=== PATIENT | female | born 1960 | race Caucasian/White ===

== ENCOUNTER 2017-06-11 00:20 | Emergency (ER) | payer SELFPAY ==
[2017-06-11 00:38] VITALS: BMI 20.3
[2017-06-11] MEDS ORDERED: Sodium Chloride 0.9% 1,000 ML IV STA (02:23)
[2017-06-11 03:02] LABS: BASO % 0.2 % (0.0-2.0); EOS % 0.2 % (0.0-4.0); HEMATOCRIT 42.4 % (34.0-47.0); MEAN CORPUSCULAR HEMOGLOBIN 28.1 pg (27.0-31.0); MEAN CORPUSCULAR HGB CONC 33.8 g/dL (33.0-37.0); MEAN PLATELET VOLUME 8.7 fl (7.2-11.7); MONO % 6.7 % (0.0-10.0); NEUT # 12.3 K/uL (1.8-7.0); NEUT % 79.9 % (50.0-75.0); NRBC % 0.1 % (0.0-0.0); RED CELL DISTRIBUTION WIDTH 13.4 % (11.5-14.5); WHITE BLOOD COUNT 15.3 K/uL (4.8-10.8)
--- NOTE | 2017-06-11 03:04 | ED PDOC ---
Hyperglycemia/Hypoglycemia Time Seen by Provider: 06/11/17 02:12 Chief Complaint (Nursing): Medical Clearance Chief Complaint (Provider): Hyperglycemia History Per: Patient History/Exam Limitations: no limitations Current Symptoms Are (Timing): Still Present Causative (Exacerbating) Factor(s): Recent Steroids : The patient does not have any of the infectious symptoms listed except for those marked. Treatment Prior To Provider Evaluation: Accucheck Additional Complaint(s): 56 year old female presents to ED with complaints of hyperglycemia and has a past medical history of DM (Type II), HTN, and dyslipidemia. Patient notes that her blood sugar level has been labile ever since she was prescribed topical cortisone for a facial rash. Cites measurements in the 600-700 range. (+) polydipsia, polyuria, dry mouth, generalized weakness, and severe body aches. Also notes no improvement in the facial rash. PCP: Raymundo Past Medical History Reviewed: Historical Data, Nursing Documentation, Vital Signs Vital Signs: Last Vital Signs Temp 98.1 F 06/11/17 00:38 Pulse 78 06/11/17 00:38 Resp 16 06/11/17 00:38 BP 131/72 06/11/17 00:38 Pulse Ox 97 06/11/17 00:38 - Medical History PMH: Anxiety, Diabetes (type II), HTN, Hyperlipidemia - Surgical History Surgical History: Cholecystectomy, (x2) - Family History Family History: States: No Known Family Hx - Social History Current smoker - smoking cessation education provided: No Ex-Smoker (has not smoked in the last 12 months): No Alcohol: None Drugs: Denies - Immunization History Hx Tetanus Toxoid Vaccination: No Hx Influenza Vaccination: No Hx Pneumococcal Vaccination: No - Home Medications Home Medications: Ambulatory Orders Medication Instructions Recorded Lisinopril/Hydrochlorothiazide 1 tab PO DAILY 11/10/14 [Lisinopril-Hydrochlorothiazide 12.5 mg-10 mg] Meclizine HCl 25 mg PO TID #20 tab 01/18/16 Ondansetron [Zofran Odt] 4 mg PO TID #10 odt 01/18/16 - Allergies Allergies/Adverse Reactions: Allergies Allergy/AdvReac Type Severity Reaction Status Date / Time morphine Allergy RASH Verified 06/11/17 00:37 Review of Systems ROS Statement: Except As Marked, All Systems Reviewed And Found Negative Constitutional: Positive for: Weakness, Other (high blood sugar level, severe body aches) ENT: Positive for: Other ((+) polydipsia) Genitourinary Female: Positive for: Other ((+) polyuria, dry mouth) Skin: Positive for: Rash Physical Exam - Reviewed Nursing Documentation Reviewed: Yes Vital Signs Reviewed: Yes - Physical Exam Appears: Positive for: Non-toxic, No Acute Distress Skin: Positive for: Warm, Dry, Rash (Malar rash on face) Eye Exam: Positive for: Normal appearance ENT: Positive for: Normal ENT Inspection Neck: Positive for: Normal Cardiovascular/Chest: Positive for: Regular Rate, Rhythm. Negative for: Murmur Respiratory: Positive for: Normal Breath Sounds. Negative for: Respiratory Distress Gastrointestinal/Abdominal: Positive for: Soft. Negative for: Tenderness Back: Positive for: Normal Inspection Extremity: Positive for: Normal ROM. Negative for: Deformity Neurologic/Psych: Positive for: Alert, Oriented. Negative for: Motor/Sensory Deficits - Laboratory Results Result Diagrams: 06/11/17 02:20 06/11/17 02:20 - ECG O2 Sat by Pulse Oximetry: 97 (RA) Pulse Ox Interpretation: Normal Medical Decision Making Medical Decision Makin Initial impression: malar rash and hyperglycemia in setting of recent steroid usage and diabetes Initial plan: * ABG * Labs * HgBA1C * UDip * Erythrocyte sedimentation rate * NS IV * Accucheck * Influenza A B 0430 Labs reviewed: no clinically significant abnormalities. Patient is stable for discharge home. Patient states she has two days worth of hydrocortisone left to take. Counseled patient to observe diabetic diet precautions and follow up with PCP Dr. Fonseca. Dx: diabetic hyperglycemia in the setting of steroid use. Scribe Attestation: Documented by Stefany Levin acting as a scribe for Robert Hairston MD. Scribe Attestation: All medical record entries made by the Scribe were at my direction and personally dictated by me. I have reviewed the chart and agree that the record accurately reflects my personal performance of the history, physical exam, medical decision making, and the department course for this patient. I have also personally directed, reviewed, and agree with the discharge instructions and disposition. Disposition - Clinical Impression Clinical Impression: Hyperglycemia due to type 2 diabetes mellitus - Disposition Disposition: Routine/Home Disposition Time: 04:30 Condition: STABLE Instructions: Diabetic Hyperglycemia (ED) Forms: [facility] (Yi) Print Language: IVORIAN
[2017-06-11 03:12] LABS: ALB/GLOB RATIO 1.3 (1.0-2.1); ALKALINE PHOSPHATASE 74 U/L (38-126); ALT/SGPT 56 U/L (9-52); AST/SGOT 37 U/L (14-36); BILIRUBIN,TOTAL 0.9 mg/dl (0.2-1.3); BLOOD UREA NITROGEN 27 mg/dl (7-17); CALCIUM 9.7 mg/dL (8.4-10.2); CARBON DIOXIDE 24 mmol/L (22-30); CHLORIDE 98 mmol/L (98-107); GFR AFRICAN-AMERICAN > 60; GLUCOSE,RANDOM 214 mg/dL (65-105); POTASSIUM 4.1 MMOL/L (3.6-5.0); SODIUM 132 mmol/l (132-148)
[2017-06-11 03:12] LABS: ABG ALLEN TEST YES; ARTERIAL BLOOD GAS HCO3 23.8 mmol/L (21-28); ARTERIAL BLOOD GAS PH 7.47 (7.35-7.45); ARTERIAL BLOOD GAS PO2 100 mm/Hg (80-100)
[2017-06-11 04:23] VITALS: BP 130/74; PULSE 74; RESP 17; TEMP 98
[2017-06-11 05:02] VITALS: O2SAT 97
== END 2017-06-11 04:15 | disposition home or self-care (01) ==
LOC: H.ER 00:20
DX: E11.65 Type 2 diabetes mellitus with hyperglycemia (principal); E78.5 Hyperlipidemia, unspecified; F41.9 Anxiety disorder, unspecified; I10 Essential (primary) hypertension; Z87.891 Personal history of nicotine dependence
CPT/HCPCS: 80053; 82803; 82948; 83036; 85025; 85651; 87804; 96360; 99282; J7040

== ENCOUNTER 2017-06-15 20:25 | Emergency (ER) | payer SELFPAY ==
[2017-06-15 20:25] VITALS: BMI 20.3
[2017-06-15 20:33] VITALS: RESP 18; TEMP 98.1; O2SAT 99
--- NOTE | 2017-06-15 21:03 | ED PDOC ---
HPI: Abdomen Time Seen by Provider: 06/15/17 21:00 Chief Complaint (Nursing): Abdominal Pain Chief Complaint (Provider): abd pain, vomiting History Per: Patient, Family (son at bedside is translating for patient) Additional Complaint(s): 56 year old female presents with abdominal pain and vomiting that started earlier today with no fever or chills. Patient states she has had watery, nonbloody diarrhea for the past 3 days as well. Patient denies any recent travel or known sick contacts. She denies consumption of any food that could have causes stomach upset. Patient also heartburn sensation in chest. She rates abd pain as 8/10 upon arrival. Past Medical History Reviewed: Historical Data, Nursing Documentation, Vital Signs Vital Signs: Last Vital Signs Temp 98.1 F 06/15/17 20:28 Pulse 91 H 06/15/17 20:28 Resp 18 06/15/17 20:28 BP 158/91 H 06/15/17 20:28 Pulse Ox 99 06/15/17 22:45 - Medical History PMH: Anxiety, Asthma, Diabetes (type II), HTN, Hyperlipidemia - Surgical History Surgical History: Cholecystectomy, (x2) - Family History Family History: States: No Known Family Hx - Living Arrangements Living Arrangements: With Family - Social History Alcohol: None Drugs: Denies - Home Medications Home Medications: Ambulatory Orders Medication Instructions Recorded Lisinopril/Hydrochlorothiazide 1 tab PO DAILY 11/10/14 [Lisinopril-Hydrochlorothiazide 12.5 mg-10 mg] Meclizine HCl 25 mg PO TID #20 tab 01/18/16 Ondansetron [Zofran Odt] 4 mg PO TID #10 odt 01/18/16 Dicyclomine [Bentyl] 10 mg PO QID PRN #20 cap 06/15/17 Esomeprazole Magnesium [Nexium] 40 mg PO DAILY #30 tab 06/15/17 Ondansetron [Zofran Odt] 4 mg PO ASDIR PRN #20 odt 06/15/17 - Allergies Allergies/Adverse Reactions: Allergies Allergy/AdvReac Type Severity Reaction Status Date / Time morphine Allergy RASH Verified 06/11/17 00:37 Review of Systems ROS Statement: Except As Marked, All Systems Reviewed And Found Negative Constitutional: Negative for: Fever, Chills Cardiovascular: Positive for: Chest Pain ("heartburn") Respiratory: Negative for: Cough, Shortness of Breath Gastrointestinal: Positive for: Nausea, Vomiting, Abdominal Pain, Diarrhea. Negative for: Constipation Genitourinary Female: Negative for: Dysuria Neurological: Positive for: Headache. Negative for: Dizziness Physical Exam - Reviewed Nursing Documentation Reviewed: Yes Vital Signs Reviewed: Yes - Physical Exam Appears: Positive for: Well, Non-toxic, No Acute Distress Skin: Negative for: Rash Eye Exam: Positive for: Normal appearance Cardiovascular/Chest: Positive for: Regular Rate, Rhythm Respiratory: Positive for: Normal Breath Sounds. Negative for: Wheezing, Respiratory Distress Gastrointestinal/Abdominal: Positive for: Tenderness (diffusely with mild distention). Negative for: Guarding, Rebound Back: Positive for: L CVA Tenderness, R CVA Tenderness Extremity: Positive for: Normal ROM. Negative for: Pedal Edema Neurologic/Psych: Positive for: Alert, Oriented - Laboratory Results Result Diagrams: 06/15/17 21:21 06/15/17 21:21 Urine dip results: Positive for: Ketones. Negative for: Leukocyte Esterase, Blood, Nitrate, Glucose, Bilirubin, Protein - ECG O2 Sat by Pulse Oximetry: 99 Pulse Ox Interpretation: Normal - Other Rad CXR X-Ray: Interpreted by Me, Viewed By Me X-Ray Interpretation: no acute finding CT abd and pelvis with IV contrast X-Ray: Read By Radiologist X-Ray Interpretation: see below Medical Decision Making Medical Decision Makin56 year old with abdominal pain, vomiting and diarrhea Plan: EKG CXR CBC CMP Lipase Troponin IVF IV zofran IV toradol PO pepcid PO maalox CT abd and pelvis K is low at 3.2, kdur 40 given Na is low at 125, second bolus given CT: FINDINGS: Limitations: Motion artifact - mild. Lower thorax: No acute findings. ABDOMEN: Liver: Unremarkable. No mass. Gallbladder and bile ducts: Cholecystectomy. No significant ductal dilation. Pancreas: No ductal dilation. No mass. Spleen: No splenomegaly. Adrenals: No mass. Kidneys and ureters: 1.9 x 1.6 x 1.9 cm slightly heterogeneous enhancing/hyperdense lesion with minimal calcification within RIGHT kidney. No hydronephrosis. Stomach and bowel: Apparent mild mural/fold thickening vs underdistention of several jejunal loops. No associated inflammatory stranding. No obstruction. Appendix: Normal caliber. No inflammation. PELVIS: Bladder: Unremarkable. Reproductive: Unremarkable as visualized. ABDOMEN and PELVIS: Intraperitoneal space: No significant fluid collection. No free air. Bones/joints: Early degenerative changes of spine. Small lucent lesions within L1 vertebral body, nonspecific. No acute fracture. Soft tissues: Unremarkable. Vasculature: Unremarkable. No aneurysm. Lymph nodes : No pathologically enlarged lymph nodes. IMPRESSION: 1. Possible mild enteritis. Clinical correlation is needed. 2. Kidney lesion. Recommend surgical evaluation. Alternatively, if patient has a limited life expectancy or significant co-morbidities, abdominal CT or MRI follow-up in 1 year could be performed. 3. Incidental/non-acute findings are described above. Patien still have "burning pain" despite meds given in ED. She was medicated with 40 mg PO protonix and 10 mg PO bentyl. Patient is tolerating PO, no further emesis noted. Will d/c with rx zofran, bentyl and nexium. Patient and family members at bedside are aware of all CT findings including incidental finding of right kidney lesion. Copy of CT report given to patient, patient was instructed to bring report to PMD for follow up. Disposition - Clinical Impression Clinical Impression: Gastroenteritis - Patient ED Disposition Is Patient to be Admitted: No Counseled Patient/Family Regarding: Studies Performed, Diagnosis, Need For Followup, Rx Given - Disposition Referrals: Catarino Fonseca MD [Family Provider] - Disposition: Routine/Home Disposition Time: 22:55 Condition: STABLE Additional Instructions: Take rx meds as directed. Follow dietary instructions. Drink plenty of fluids. Follow up with primary care doctor. Prescriptions: Dicyclomine [Bentyl] 10 mg PO QID PRN #20 cap PRN Reason: Gi Distress Esomeprazole Magnesium [Nexium] 40 mg PO DAILY #30 tab Ondansetron [Zofran Odt] 4 mg PO ASDIR PRN #20 odt PRN Reason: Nausea/Vomiting Forms: [employer] (Swedish) Results - Lab Results Lab Results: 06/15/17 06/15/17 21:21 21:21 WBC 16.5 H RBC 5.08 Hgb 14.4 Hct 42.0 MCV 82.7 MCH 28.3 MCHC 34.2 RDW 13.0 Plt Count 264 MPV 9.2 Neut % (Auto) 77.0 H Lymph % (Auto) 17.7 L [place] % (Auto) 4.6 Eos % (Auto) 0.3 Baso % (Auto) 0.4 Neut # 12.7 H Lymph # 2.9 [place] # 0.8 Eos # 0.1 Baso # 0.1 Sodium 125 L Potassium 3.2 L Chloride 91 L Carbon Dioxide 23 Anion Gap 14 BUN 22 H Creatinine 0.9 Est GFR ( Amer) > 60 Est GFR (Non-Af Amer) > 60 Random Glucose 216 H Calcium 9.5 Total Bilirubin 0.8 AST 39 H D ALT 60 H Alkaline Phosphatase 79 Troponin I < 0.0120 Total Protein 8.1 Albumin 4.8 Globulin 3.3 Albumin/Globulin Ratio 1.4 Lipase 109
[2017-06-15] MEDS ORDERED: Sodium Chloride 0.9% 1,000 ML IV STA ×2 (21:08→21:47)
[2017-06-15] MEDS ORDERED: Alum-Mag Hydrox-Simethicone Susp (30 mL) PO STA (21:08)
[2017-06-15] MEDS ORDERED: Alum-Mag Hydrox-Simethicone Susp (30 mL) ONE (21:16)
[2017-06-15 21:24] LABS: BASO # 0.1 K/uL (0.0-0.2); BASO % 0.4 % (0.0-2.0); EOS # 0.1 K/uL (0.0-0.7); EOS % 0.3 % (0.0-4.0); HEMOGLOBIN 14.4 g/dL (12.0-16.0); LYMPH # 2.9 K/uL (1.0-4.3); LYMPH % 17.7 % (20.0-40.0); MEAN CELL VOLUME 82.7 fl (81.0-99.0); MEAN CORPUSCULAR HEMOGLOBIN 28.3 pg (27.0-31.0); MEAN CORPUSCULAR HGB CONC 34.2 g/dL (33.0-37.0); MEAN PLATELET VOLUME 9.2 fl (7.2-11.7); MONO # 0.8 K/uL (0.0-0.8); MONO % 4.6 % (0.0-10.0); NEUT # 12.7 K/uL (1.8-7.0); NRBC % 0.1 % (0.0-0.0); RBC 5.08 Mil/uL (3.80-5.20); WHITE BLOOD COUNT 16.5 K/uL (4.8-10.8)
[2017-06-15 21:40] LABS: ALB/GLOB RATIO 1.4 (1.0-2.1); ALBUMIN 4.8 g/dL (3.5-5.0); ALT/SGPT 60 U/L (9-52); AST/SGOT 39 U/L (14-36); BLOOD UREA NITROGEN 22 mg/dl (7-17); CALCIUM 9.5 mg/dL (8.4-10.2); GFR AFRICAN-AMERICAN > 60; GFR NON-AFRICAN AMERICAN > 60; LIPASE 109 U/L (23-300)
[2017-06-15] MEDS ORDERED: Potassium Chloride 20 mEq ER Tab PO STA (21:47)
[2017-06-15] MEDS ORDERED: Iohexol 300 100 ML IJ ONE (21:58)
[2017-06-15] MEDS ORDERED: Sodium Chloride 0.9% 50 ML IV ONE (21:59)
[2017-06-15] MEDS ORDERED: Potassium Chloride 20 mEq ER Tab PO ONE (22:15)
--- NOTE | 2017-06-15 22:46 | CT ---
EXAM: CT Abdomen and Pelvis With Intravenous Contrast CLINICAL HISTORY: 56 years old, female; Pain; Abdominal pain; Generalized; Prior surgery; Surgery date: 6+ months; Surgery type: Cholecystectomy around 6 yrs ago. x 2 2002 2000; Patient HX: Abd pain ; most pain epigastric with burning sensation n v d. HTN dm hyperlipidemia; Additional info: Vomiting, diarrhea, diffuse abd pain TECHNIQUE: Axial computed tomography images of the abdomen and pelvis with intravenous contrast. All CT scans at this facility use one or more dose reduction techniques, viz.: automated exposure control; ma/kV adjustment per patient size (including targeted exams where dose is matched to indication; i.e. head); or iterative reconstruction technique. Coronal and sagittal reformatted images were created and reviewed. CONTRAST: 80 mL of OMNIPAQUE administered intravenously. COMPARISON: US - TRANSVAGINAL 2017-02-26 11:00 FINDINGS: Limitations: Motion artifact - mild. Lower thorax: No acute findings. ABDOMEN: Liver: Unremarkable. No mass. Gallbladder and bile ducts: Cholecystectomy. No significant ductal dilation. Pancreas: No ductal dilation. No mass. Spleen: No splenomegaly. Adrenals: No mass. Kidneys and ureters: 1.9 x 1.6 x 1.9 cm slightly heterogeneous enhancing/hyperdense lesion with minimal calcification within RIGHT kidney. No hydronephrosis. Stomach and bowel: Apparent mild mural/fold thickening vs underdistention of several jejunal loops. No associated inflammatory stranding. No obstruction. Appendix: Normal caliber. No inflammation. PELVIS: Bladder: Unremarkable. Reproductive: Unremarkable as visualized. ABDOMEN and PELVIS: Intraperitoneal space: No significant fluid collection. No free air. Bones/joints: Early degenerative changes of spine. Small lucent lesions within L1 vertebral body, nonspecific. No acute fracture. Soft tissues: Unremarkable. Vasculature: Unremarkable. No aneurysm. Lymph nodes: No pathologically enlarged lymph nodes. IMPRESSION: 1. Possible mild enteritis. Clinical correlation is needed. 2. Kidney lesion. Recommend surgical evaluation. Alternatively, if patient has a limited life expectancy or significant co-morbidities, abdominal CT or MRI follow-up in 1 year could be performed. 3. Incidental/non-acute findings are described above. THIS REPORT CONTAINS FINDINGS THAT MAY BE CRITICAL TO PATIENT CARE. The findings were verbally communicated via telephone conference with physician public health training assistant Slime Ramos PA-C at 10:45 PM EST on 06/15/2017. The findings were acknowledged and understood.
[2017-06-15] MEDS ORDERED: Pantoprazole 40 mg EC Tab PO STA (22:50)
[2017-06-15] MEDS ORDERED: Pantoprazole 40 mg EC Tab PO ONE (22:52)
[2017-06-15 22:55] VITALS: BP 110/64; PULSE 86
--- NOTE | 2017-06-16 09:01 | RAD ---
HISTORY: pain COMPARISON: No prior. FINDINGS: LUNGS: No active pulmonary disease. PLEURA: No significant pleural effusion identified, no pneumothorax apparent. CARDIOVASCULAR: Normal. OSSEOUS STRUCTURES: Unchanged. VISUALIZED UPPER ABDOMEN: Right upper quadrant surgical clips redemonstrated. OTHER FINDINGS: None. IMPRESSION: No active disease.
== END 2017-06-15 23:10 | disposition home or self-care (01) ==
LOC: H.ER 20:25
DX: K52.9 Noninfective gastroenteritis and colitis, unspecified (principal); E11.69 Type 2 diabetes mellitus with other specified complication; E78.5 Hyperlipidemia, unspecified; I10 Essential (primary) hypertension; J45.909 Unspecified asthma, uncomplicated; Z90.49 Acquired absence of other specified parts of digestive tract
CPT/HCPCS: 71010; 74177; 80053; 83690; 84484; 85025; 99283; J1885; J2405; J7040; Q9967

== ENCOUNTER 2017-07-04 03:22 | Emergency (ER) | payer SELFPAY ==
[2017-07-04 03:23] VITALS: BMI 20.3
[2017-07-04 03:48] VITALS: RESP 18; TEMP 98.1; O2SAT 98
[2017-07-04] MEDS ORDERED: Sodium Chloride 0.9% 1,000 ML IV STA (03:54)
[2017-07-04 04:06] LABS: BASO # 0.1 K/uL (0.0-0.2); BASO % 0.9 % (0.0-2.0); EOS # 0.1 K/uL (0.0-0.7); EOS % 0.9 % (0.0-4.0); LYMPH # 2.1 K/uL (1.0-4.3); LYMPH % 32.7 % (20.0-40.0); MEAN CELL VOLUME 84.8 fl (81.0-99.0); MEAN CORPUSCULAR HEMOGLOBIN 28.5 pg (27.0-31.0); MEAN CORPUSCULAR HGB CONC 33.7 g/dL (33.0-37.0); MEAN PLATELET VOLUME 8.2 fl (7.2-11.7); MONO # 0.5 K/uL (0.0-0.8); MONO % 8.5 % (0.0-10.0); NEUT # 3.7 K/uL (1.8-7.0); NRBC % 0.1 % (0.0-0.0); RBC 4.55 Mil/uL (3.80-5.20); WHITE BLOOD COUNT 6.5 K/uL (4.8-10.8)
--- NOTE | 2017-07-04 04:08 | ED PDOC ---
HPI: Abdomen Chief Complaint (Provider): abdominal pain History Per: Patient History/Exam Limitations: no limitations Onset/Duration Of Symptoms: Mins (30) Current Symptoms Are (Timing): Still Present Location Of Pain/Discomfort: Diffuse Associated Symptoms: Nausea, Vomiting, Diarrhea Additional History Per: Patient <Sarah Rogers - Last Filed: 07/04/17 05:52> <Nicholas Kauffman - Last Filed: 07/04/17 06:08> Time Seen by Provider: 07/04/17 03:50 Chief Complaint (Nursing): Abdominal Pain Additional Complaint(s): 56 y/o female presents with diffuse abdominal pain x 30 mins. Patient states pain woke her up from her sleep. Associated vomiting x 2. Patient states she has had diarrhea all day. Denies fever, chest pain, shortness of breath, palpitations, recent travel, sick contacts. (Sarah Rogers) Supervising Attending Note <Sarah Rogers - Last Filed: 07/04/17 05:52> - Attestation: I have personally seen and examined this patient.: Yes I have fully participated in the care of the patient.: Yes I have reviewed all pertinent clinical information: Yes <Nicholas Kauffman - Last Filed: 07/04/17 06:08> - Notes: Notes:: Pt. improving, pending CT A/P with PO and IV contrast. Will endorse to day team , Dr. Hamilton at 7AM pending CT and reassessment. (Nicholas Kauffman) Past Medical History Reviewed: Historical Data, Nursing Documentation, Vital Signs - Medical History PMH: Anxiety, Asthma, Diabetes (type II), HTN, Hyperlipidemia - Surgical History Surgical History: Cholecystectomy, (x2) - Family History Family History: States: No Known Family Hx - Immunization History Hx Tetanus Toxoid Vaccination: No Hx Influenza Vaccination: No Hx Pneumococcal Vaccination: No <Sarah Rogers - Last Filed: 07/04/17 05:52> <Nicholas Kauffman - Last Filed: 07/04/17 06:08> Vital Signs: Last Vital Signs Temp 98.1 F 07/04/17 03:45 Pulse 106 H 07/04/17 03:45 Resp 18 07/04/17 03:45 BP 163/94 H 07/04/17 03:45 Pulse Ox 98 07/04/17 05:59 - Home Medications Home Medications: Ambulatory Orders Medication Instructions Recorded Lisinopril/Hydrochlorothiazide 1 tab PO DAILY 11/10/14 [Lisinopril-Hydrochlorothiazide 12.5 mg-10 mg] Meclizine HCl 25 mg PO TID #20 tab 01/18/16 Ondansetron [Zofran Odt] 4 mg PO TID #10 odt 01/18/16 Dicyclomine [Bentyl] 10 mg PO QID PRN #20 cap 06/15/17 Esomeprazole Magnesium [Nexium] 40 mg PO DAILY #30 tab 06/15/17 Ondansetron [Zofran Odt] 4 mg PO ASDIR PRN #20 odt 06/15/17 - Allergies Allergies/Adverse Reactions: Allergies Allergy/AdvReac Type Severity Reaction Status Date / Time morphine Allergy RASH Verified 06/11/17 00:37 Review of Systems ROS Statement: Except As Marked, All Systems Reviewed And Found Negative Gastrointestinal: Positive for: Nausea, Vomiting, Abdominal Pain, Diarrhea <Sarah Rogers C - Last Filed: 07/04/17 05:52> Physical Exam - Reviewed Nursing Documentation Reviewed: Yes Vital Signs Reviewed: Yes - Physical Exam Appears: Positive for: Well, Non-toxic, Uncomfortable Head Exam: Positive for: ATRAUMATIC, NORMAL INSPECTION, NORMOCEPHALIC Skin: Positive for: Normal Color Eye Exam: Positive for: Normal appearance ENT: Positive for: Normal ENT Inspection Cardiovascular/Chest: Positive for: Regular Rate, Rhythm Respiratory: Positive for: Normal Breath Sounds Gastrointestinal/Abdominal: Positive for: Bowel Sounds, Tenderness (diffuse), Distended Back: Positive for: Normal Inspection Extremity: Positive for: Normal ROM Neurologic/Psych: Positive for: Alert, Oriented <Sarah Rogers C - Last Filed: 07/04/17 05:52> - Laboratory Results Result Diagrams: 07/04/17 04:03 07/04/17 04:03 - ECG ECG: Positive for: Viewed By Me (reviewed by ED attending) ECG Rhythm: Positive for: Sinus Rhythm O2 Sat by Pulse Oximetry: 98 - Other Rad obstructive series X-Ray: Viewed By Me X-Ray Interpretation: constipation <Sarah Rogers - Last Filed: 07/04/17 05:52> - Laboratory Results Result Diagrams: 07/04/17 04:03 07/04/17 04:03 <Nicholas Kauffman - Last Filed: 07/04/17 06:08> - Progress ED Course And Treament: labs, urine, ekg, IV fluids, IV pepcid, IV zofran, PO bentyl, obstructive series xray (Sarah Rogers) Disposition - Disposition Disposition Time: 06:00 Patient Signed Over To: Nicholas Kauffman Handoff Comments: pending CT <Sarah Rogers - Last Filed: 07/04/17 05:52> <Nicholas Kauffman - Last Filed: 07/04/17 06:08> - Clinical Impression Clinical Impression: Abdominal pain - Disposition Referrals: Catarino Fonseca MD [Primary Care Provider] - Condition: STABLE Forms: [facility] ([place])
[2017-07-04 04:27] LABS: ALB/GLOB RATIO 1.3 (1.0-2.1); ALBUMIN 4.2 g/dL (3.5-5.0); ALT/SGPT 44 U/L (9-52); AST/SGOT 27 U/L (14-36); BLOOD UREA NITROGEN 23 mg/dl (7-17); CALCIUM 9.4 mg/dL (8.4-10.2); GFR AFRICAN-AMERICAN > 60; GFR NON-AFRICAN AMERICAN > 60; LIPASE 109 U/L (23-300)
[2017-07-04 04:44] LABS: URINE BILIRUBIN NEGATIVE (NEGATIVE); URINE BLOOD NEGATIVE (NEGATIVE); URINE CLARITY CLEAR (Clear); URINE COLOR YELLOW (YELLOW); URINE GLUCOSE (UA) NEG (Normal); URINE LEUKOCYTE ESTERASE NEG Leu/uL (Negative); URINE NITRATE NEGATIVE (NEGATIVE); URINE PROTEIN NEGATIVE (NEGATIVE); URINE UROBILINOGEN 0.2-1.0 mg/dL (0.2-1.0)
[2017-07-04] MEDS ORDERED: Iohexol 240 (50 ml) ONE (05:04)
[2017-07-04] MEDS ORDERED: Iohexol 240 (50 ml) PO ONE (05:16)
[2017-07-04] MEDS ORDERED: Iohexol 300 100 ML IJ ONE (06:19)
[2017-07-04] MEDS ORDERED: Sodium Chloride 0.9% 50 ML IV ONE (06:19)
--- NOTE | 2017-07-04 07:13 | CT ---
EXAM: CT Abdomen and Pelvis With Intravenous Contrast CLINICAL HISTORY: 56 years old, female; Pain; Abdominal pain; Generalized; Prior surgery; Surgery date: 6+ months; Surgery type: . Gall bladder removed; Additional info: Abd pain, vomiting/diarrhea. Right kidney tumor per patient TECHNIQUE: Axial computed tomography images of the abdomen and pelvis with intravenous contrast. All CT scans at this facility use one or more dose reduction techniques, viz.: automated exposure control; ma/kV adjustment per patient size (including targeted exams where dose is matched to indication; i.e. head); or iterative reconstruction technique. 649 images are submitted. Oral contrast was administered. Axial images are submitted in lung windows. Coronal and sagittal reformatted images were created and reviewed. CONTRAST: 85 mL of [id number] administered intravenously. COMPARISON: CT - ABD PELVIS IV CONTRAST ONLY 2017-06-15 22:13 FINDINGS: Lower thorax: No acute findings. ABDOMEN: Liver: Fatty liver. Gallbladder and bile ducts: Cholecystectomy. Pancreas: Unremarkable. No mass. No ductal dilation. Spleen: Unremarkable. No splenomegaly. Adrenals: Unremarkable. No mass. Kidneys and ureters: There is right posterior mid polar solid renal nodule measuring 1.6 x 2.1 x by 2.1 cm which was seen on prior examination from June 15, 2017. No hydronephrosis. Stomach and bowel: Nonspecific gastric thickening likely due to under distention. Correlation with clinical data is recommended if gastritis is suspected. There is stool like appearance to the distal small bowel. This may represent slow transit. Large amount of stool in the colon. Nonspecific colonic wall thickening. Correlation with patient's clinical history of constipation versus stool related colitis is recommended. Nonspecific thickening of left colon likely due to under distention versus nonspecific colitis. Appendix: No findings to suggest acute appendicitis. PELVIS: Bladder: Bladder distention measuring 10 cm. Correlation with patient's voiding status is recommended. Reproductive: Uterus is seen. ABDOMEN and PELVIS: Intraperitoneal space: Unremarkable. No free air. No significant fluid collection. Bones/joints: No acute fracture. No dislocation. Soft tissues: Unremarkable. Vasculature: Unremarkable. No abdominal aortic aneurysm. Lymph nodes: Unremarkable. No enlarged lymph nodes. IMPRESSION: 1. Nonspecific gastric thickening likely due to under distention. Correlation with clinical data is recommended if gastritis is suspected. 2. There is right posterior mid polar solid renal nodule measuring 1.6 x 2.1 x by 2.1 cm which was seen on prior examination from June 15, 2017. Correlation with internal medicine evaluation and further workup or followup as recommended by patient's clinical data.
[2017-07-04] MEDS ORDERED: Alum-Mag Hydrox-Simethicone Susp (30 mL) PO STA (07:20)
[2017-07-04] MEDS ORDERED: Alum-Mag Hydrox-Simethicone Susp (30 mL) ONE (07:42)
[2017-07-04 07:55] VITALS: BP 152/90; PULSE 92
--- NOTE | 2017-07-04 08:27 | CARD ---
APPROVED REPORT EKG Measurement Heart [id number] <Conclusion> Normal sinus rhythm Normal ECG
--- NOTE | 2017-07-04 12:31 | RAD ---
PROCEDURE: Radiographs of the chest and abdomen (obstructive series) HISTORY: abd pain, vomiting COMPARISON: Subsequent abdomen pelvis CT 07/20/2017 6:41 a.m.. TECHNIQUE: AP radiograph of the chest, with upright and supine radiographs of the abdomen. FINDINGS: CHEST: Lungs: No infiltrate identified bilaterally. Cardiovascular: Normal size heart. No pulmonary vascular congestion. Pleura: No pleural fluid. No pneumothorax. Other findings: None. ABDOMEN AND PELVIS: Bowel: Unremarkable bowel gas pattern. No evidence of mechanical obstruction. Moderate fecal loading is seen at the ascending and transverse colon segments. Free air: None. Bones: Unremarkable. Other findings: Surgical clips in the right upper quadrant abdomen. IMPRESSION: Unremarkable radiographs of chest and abdomen. No evidence of mechanical bowel obstruction. Please see separate abdomen and pelvis CT exam report from 07/04/2017 particularly with respect to the right kidney where a lesion has been identified once again as well as in prior CT 06/15/2017.
== END 2017-07-04 07:50 | disposition home or self-care (01) ==
LOC: H.ER 03:22
DX: N28.89 Other specified disorders of kidney and ureter (principal); E11.9 Type 2 diabetes mellitus without complications; E78.5 Hyperlipidemia, unspecified; I10 Essential (primary) hypertension
CPT/HCPCS: 74022; 74177; 80053; 81003; 83690; 85025; 93005; 96374; 99283; J1885; J2405; J7040; Q9966; Q9967

== ENCOUNTER 2017-07-04 16:33 | Emergency (ER) | payer SELFPAY ==
[2017-07-04 16:33] VITALS: BMI 20.3
[2017-07-04 16:43] VITALS: BP 134/75; PULSE 88; RESP 18; TEMP 98.7; O2SAT 100
[2017-07-04] MEDS ORDERED: DiphenhydrAMINE 50 mg/ml Inj IM STA (17:02)
--- NOTE | 2017-07-04 17:05 | ED PDOC ---
HPI: Allergic Reaction Time Seen by Provider: 07/04/17 16:42 Chief Complaint (Nursing): Allergic Reaction Chief Complaint (Provider): Allergic Reaction History Per: Patient, Welder/Fitter History/Exam Limitations: no limitations Onset/Duration Of Symptoms: Days (x today) Current Symptoms Are (Timing): Still Present Associated Symptoms: Skin Rash Additional Complaint(s): Blessing is a 56 year old female who presents to the emergency department with pruritic rash throughout her entire body at 13:00. Patient states that at 06:00 this morning she was at ED and had IV contrast placed and did not have any reactions. Reports having similar reactions in the past. Patient is uncertain what may be causing reaction. Patient is currently seeing server service assistant. Denies any shortness of breath, chest pain, fever or throat swelling. PMD: Catarino Fonseca Past Medical History Reviewed: Historical Data, Nursing Documentation, Vital Signs Vital Signs: Last Vital Signs Temp 98.7 F 07/04/17 16:35 Pulse 88 07/04/17 16:35 Resp 18 07/04/17 16:35 BP 134/75 07/04/17 16:35 Pulse Ox 100 07/04/17 16:35 - Medical History PMH: Anxiety, Asthma, Diabetes (type II), HTN, Hyperlipidemia - Surgical History Surgical History: Cholecystectomy, (x2) - Family History Family History: States: No Known Family Hx - Immunization History Hx Tetanus Toxoid Vaccination: No Hx Influenza Vaccination: No Hx Pneumococcal Vaccination: No - Home Medications Home Medications: Ambulatory Orders Medication Instructions Recorded Lisinopril/Hydrochlorothiazide 1 tab PO DAILY 11/10/14 [Lisinopril-Hydrochlorothiazide 12.5 mg-10 mg] Meclizine HCl 25 mg PO TID #20 tab 01/18/16 Ondansetron [Zofran Odt] 4 mg PO TID #10 odt 01/18/16 Dicyclomine [Bentyl] 10 mg PO QID PRN #20 cap 06/15/17 Esomeprazole Magnesium [Nexium] 40 mg PO DAILY #30 tab 06/15/17 Ondansetron [Zofran Odt] 4 mg PO ASDIR PRN #20 odt 06/15/17 DiphenhydrAMINE [Benadryl] 1 - 2 cap PO Q6 PRN #30 cap 07/04/17 Famotidine [Pepcid] 20 mg PO BID #20 tab 07/04/17 Pantoprazole Sodium [Protonix] 40 mg PO DAILY #30 ect 07/04/17 predniSONE [Prednisone] 20 mg PO DAILY #5 tab 07/04/17 - Allergies Allergies/Adverse Reactions: Allergies Allergy/AdvReac Type Severity Reaction Status Date / Time morphine Allergy RASH Verified 06/11/17 00:37 Review of Systems ROS Statement: Except As Marked, All Systems Reviewed And Found Negative Constitutional: Negative for: Fever ENT: Negative for: Throat Swelling Cardiovascular: Negative for: Chest Pain Respiratory: Negative for: Shortness of Breath Skin: Positive for: Rash (pruritic rash throughout entire body) Physical Exam - Reviewed Nursing Documentation Reviewed: Yes Vital Signs Reviewed: Yes - Physical Exam Skin: Positive for: Rash (diffuse erythematous pruritic rash with blanching but no vesicles or pustules) ENT: Positive for: Normal ENT Inspection. Negative for: Tonsillar Swelling Respiratory: Positive for: Normal Breath Sounds (Lungs clear). Negative for: Respiratory Distress - ECG O2 Sat by Pulse Oximetry: 100 (RA) Pulse Ox Interpretation: Normal Disposition - Clinical Impression Clinical Impression: Urticaria - Patient ED Disposition Is Patient to be Admitted: No - Disposition Referrals: [facility] [Outside] [facility] [Outside] Disposition: Routine/Home Disposition Time: 17:00 Condition: STABLE Additional Instructions: Follow up with your server service assistant for further evaluation. Return ot ED immediately if symptoms worsen or if SOB or throat swelling develops. Prescriptions: DiphenhydrAMINE [Benadryl] 1 - 2 cap PO Q6 PRN #30 cap PRN Reason: itching or rash predniSONE [Prednisone] 20 mg PO DAILY #5 tab Instructions: Urticaria (ED) Forms: [facility] (Lao) Print Language: EAST [place] Medical Decision Making Medical Decision Making: Time: 17:02 Plan: - Benadryl 50 mg IM Upon provider evaluation patient is medically stable, and requires no further treatment in the ED at this time. Patient will be discharged with Rx for Prednisone and Benadryl. Counseling was provided and all questions were answered regarding diagnosis and advised to follow up with server service assistant. There is agreement to discharge plan. Return if symptoms persist or worsen. Scribe Attestation: Documented by Burak Brandon, acting as a scribe for ANDRIA Ghosh. Provider Scribe Attestation: All medical record entries made by the Scribe were at my direction and personally dictated by me. I have reviewed the chart and agree that the record accurately reflects my personal performance of the history, physical exam, medical decision making, and the department course for this patient. I have also personally directed, reviewed, and agree with the discharge instructions and disposition.
--- NOTE | 2017-07-04 17:07 | ED PDOC ---
HPI: Allergic Reaction Time Seen by Provider: 07/04/17 16:42 Chief Complaint (Nursing): Allergic Reaction Chief Complaint (Provider): Allergic Reaction History Per: Patient History/Exam Limitations: no limitations Onset/Duration Of Symptoms: Days (x today) Current Symptoms Are (Timing): Still Present Associated Symptoms: Skin Rash, Redness Additional Complaint(s): Blessing is a 56 year old female who presents to the emergency department with pruritic rash throughout her entire body at 13:00. Patient states that at 06:00 this morning she was at ED and had IV contrast placed and did not have any reactions. Reports having similar reactions in the past. Patient is uncertain what may be causing reaction. Patient is currently seeing compliance investigator. Denies any shortness of breath, chest pain, fever or throat swelling. PMD: Catarino Fonseca Past Medical History Reviewed: Historical Data, Nursing Documentation, Vital Signs Vital Signs: Last Vital Signs Temp 98.7 F 07/04/17 16:35 Pulse 88 07/04/17 16:35 Resp 18 07/04/17 16:35 BP 134/75 07/04/17 16:35 Pulse Ox 100 07/04/17 16:35 - Medical History PMH: Anxiety, Asthma, Diabetes (type II), HTN, Hyperlipidemia - Surgical History Surgical History: Cholecystectomy, (x2) - Family History Family History: States: Unknown Family Hx - Immunization History Hx Tetanus Toxoid Vaccination: No Hx Influenza Vaccination: No Hx Pneumococcal Vaccination: No - Home Medications Home Medications: Ambulatory Orders Medication Instructions Recorded Lisinopril/Hydrochlorothiazide 1 tab PO DAILY 11/10/14 [Lisinopril-Hydrochlorothiazide 12.5 mg-10 mg] Meclizine HCl 25 mg PO TID #20 tab 01/18/16 Ondansetron [Zofran Odt] 4 mg PO TID #10 odt 01/18/16 Dicyclomine [Bentyl] 10 mg PO QID PRN #20 cap 06/15/17 Esomeprazole Magnesium [Nexium] 40 mg PO DAILY #30 tab 06/15/17 Ondansetron [Zofran Odt] 4 mg PO ASDIR PRN #20 odt 06/15/17 DiphenhydrAMINE [Benadryl] 1 - 2 cap PO Q6 PRN #30 cap 07/04/17 Famotidine [Pepcid] 20 mg PO BID #20 tab 07/04/17 Pantoprazole Sodium [Protonix] 40 mg PO DAILY #30 ect 07/04/17 predniSONE [Prednisone] 20 mg PO DAILY #5 tab 07/04/17 - Allergies Allergies/Adverse Reactions: Allergies Allergy/AdvReac Type Severity Reaction Status Date / Time morphine Allergy RASH Verified 06/11/17 00:37 Review of Systems ROS Statement: Except As Marked, All Systems Reviewed And Found Negative Constitutional: Negative for: Fever ENT: Negative for: Throat Swelling Cardiovascular: Negative for: Chest Pain Respiratory: Negative for: Shortness of Breath Skin: Positive for: Rash (pruritic rash throughout her entire body) Physical Exam - Reviewed Nursing Documentation Reviewed: Yes Vital Signs Reviewed: Yes - Physical Exam Skin: Positive for: Rash (diffuse erythematous pruritic rash with blanching but no vesicles or pustules) ENT: Positive for: Normal ENT Inspection. Negative for: Tonsillar Swelling Respiratory: Positive for: Normal Breath Sounds (Lungs clear). Negative for: Respiratory Distress - ECG O2 Sat by Pulse Oximetry: 100 (RA) Pulse Ox Interpretation: Normal Disposition - Patient ED Disposition Is Patient to be Admitted: No - Disposition Disposition: Routine/Home Disposition Time: 17:02 Condition: STABLE Forms: flikdate (Grenadian) Medical Decision Making Medical Decision Making: Time: 17:02 Plan: - Benadryl 50 mg IM Upon provider evaluation patient is medically stable, and requires no further treatment in the ED at this time. Patient will be discharged with Rx for Prednisone and Benadryl. Counseling was provided and all questions were answered regarding diagnosis. There is agreement to discharge plan. Return if symptoms persist or worsen. Scribe Attestation: Documented by Burak Brandon, acting as a scribe for ANDRIA Ghosh. Provider Scribe Attestation: All medical record entries made by the Scribe were at my direction and personally dictated by me. I have reviewed the chart and agree that the record accurately reflects my personal performance of the history, physical exam, medical decision making, and the department course for this patient. I have also personally directed, reviewed, and agree with the discharge instructions and disposition.
== END 2017-07-04 17:40 | disposition home or self-care (01) ==
LOC: H.ER 16:33
DX: T78.40XA Allergy, unspecified, initial encounter (principal); L50.0 Allergic urticaria; E11.9 Type 2 diabetes mellitus without complications; E78.5 Hyperlipidemia, unspecified; F41.9 Anxiety disorder, unspecified; I10 Essential (primary) hypertension; J45.909 Unspecified asthma, uncomplicated
CPT/HCPCS: 96372; 99283; J1200

== ENCOUNTER 2017-07-09 15:20 | Emergency (ER) | payer SELFPAY ==
[2017-07-09 15:20] VITALS: BMI 20.3
[2017-07-09 15:37] VITALS: BP 151/84; PULSE 114; RESP 16; TEMP 98.5; O2SAT 99
[2017-07-09] MEDS ORDERED: DiphenhydrAMINE 50 mg/ml Inj IVP STA (15:53)
[2017-07-09] MEDS ORDERED: Sodium Chloride 0.9% 1,000 ML IV STA (15:54)
--- NOTE | 2017-07-09 16:05 | ED PDOC ---
HPI: General Adult Time Seen by Provider: 07/09/17 15:44 Chief Complaint (Nursing): Headache Chief Complaint (Provider): Vomiting, Headache History Per: Patient History/Exam Limitations: no limitations Current Symptoms Are (Timing): Still Present Additional Complaint(s): Blessing is a 56 y/o female with a history of high cholesterol, hypertension, and diabetes who presents to the ED complaining of vomiting and headache. Patient states that approximately 5 minutes after trying to eat a salad she felt very nauseous and got a headache. She describes the headache as a constant pain in both frontal and posterior. She has vomited and wretched multiple times since onset but no bilious or bloody vomit. She denies stomach pain and says she had diarrhea the past 4 days but it stopped today. Patient was seen here 5 days ago for abdominal pain and underwent CT which was unremarkable. She reports she had been eating regular food already before eating the salad. She also reports her skin feels very itchy, especially her face and arms as if there are insects all over her. Patient has no history of migraines or headache. She admits to dizziness but no focal weakness or blurred vision. PMD: Dr. Smyth Past Medical History Reviewed: Historical Data, Nursing Documentation, Vital Signs Vital Signs: Last Vital Signs Temp 98.5 F 07/09/17 15:36 Pulse 114 H 07/09/17 15:36 Resp 16 07/09/17 15:36 BP 151/84 H 07/09/17 15:36 Pulse Ox 99 07/09/17 18:48 - Medical History PMH: Anxiety, Asthma, Diabetes (type II), HTN, Hyperlipidemia - Surgical History Surgical History: Cholecystectomy, (x2) - Family History Family History: States: Hypertension - Social History Current smoker - smoking cessation education provided: No Ex-Smoker (has not smoked in the last 12 months): No Alcohol: None Drugs: Denies - Immunization History Hx Tetanus Toxoid Vaccination: No Hx Influenza Vaccination: No Hx Pneumococcal Vaccination: No - Home Medications Home Medications: Ambulatory Orders Medication Instructions Recorded Lisinopril/Hydrochlorothiazide 1 tab PO DAILY 11/10/14 [Lisinopril-Hydrochlorothiazide 12.5 mg-10 mg] Meclizine HCl 25 mg PO TID #20 tab 01/18/16 Ondansetron [Zofran Odt] 4 mg PO TID #10 odt 01/18/16 Dicyclomine [Bentyl] 10 mg PO QID PRN #20 cap 06/15/17 Esomeprazole Magnesium [Nexium] 40 mg PO DAILY #30 tab 06/15/17 Ondansetron [Zofran Odt] 4 mg PO ASDIR PRN #20 odt 06/15/17 DiphenhydrAMINE [Benadryl] 1 - 2 cap PO Q6 PRN #30 cap 07/04/17 Famotidine [Pepcid] 20 mg PO BID #20 tab 07/04/17 Pantoprazole Sodium [Protonix] 40 mg PO DAILY #30 ect 07/04/17 predniSONE [Prednisone] 20 mg PO DAILY #5 tab 07/04/17 Ondansetron ODT [Zofran ODT] 1 odt PO Q6 PRN #20 odt 07/09/17 - Allergies Allergies/Adverse Reactions: Allergies Allergy/AdvReac Type Severity Reaction Status Date / Time morphine Allergy RASH Verified 07/09/17 15:35 Review of Systems ROS Statement: Except As Marked, All Systems Reviewed And Found Negative Gastrointestinal: Positive for: Nausea, Vomiting, Diarrhea (resolved). Negative for: Abdominal Pain, Hematemesis Skin: Positive for: Other (itchiness) Neurological: Positive for: Headache, Dizziness. Negative for: Weakness, Other (blurred vision) Physical Exam - Reviewed Nursing Documentation Reviewed: Yes Vital Signs Reviewed: Yes - Physical Exam Appears: Positive for: Non-toxic, In Acute Distress Head Exam: Positive for: ATRAUMATIC, NORMOCEPHALIC Skin: Positive for: Warm, Dry Eye Exam: Positive for: EOMI, PERRL ENT: Negative for: Pharyngeal Erythema, Tonsillar Exudate Neck: Positive for: Painless ROM, Supple Cardiovascular/Chest: Positive for: Tachycardia (regular rhythm). Negative for : Murmur Respiratory: Positive for: Normal Breath Sounds. Negative for: Wheezing Gastrointestinal/Abdominal: Positive for: Soft. Negative for: Tenderness, Mass , Distended, Guarding Back: Positive for: Normal Inspection. Negative for: Muscle Spasm Extremity: Positive for: Normal ROM. Negative for: Deformity Lymphatic: Negative for: Adenopathy Neurologic/Psych: Positive for: Alert, Oriented (x3), Mood/Affect (anxious affect). Negative for: Motor/Sensory Deficits - Laboratory Results Result Diagrams: 07/09/17 16:00 07/09/17 16:00 - ECG O2 Sat by Pulse Oximetry: 99 (RA) Pulse Ox Interpretation: Normal Medical Decision Making Medical Decision Making: Time: 15:53 Initial Impression: Headache and vomiting; Differentials include migraine, hemorrhage, food poisoning, allergic reaction, gastritis Initial Plan: --VBG --CT Head w/o Contrast --EKG --CMP --Lipase --Magnesium --Phosphorous --Urine Dip --CBC --Bentyl --Pepcid --Phenergan --Blood Glucose Accession No. : [id number] Patient Name / ID : KATHRYN WILKINS / [id number] Exam Date : 07/09/2017 18:07:34 ( Approved ) Study Comment : Sex / Age : F / 56Y Creator : Heavenly Pink MD Dictator : Heavenly Pink MD Sample Prep Technician : Care Transition Coordinator : Heavenly Pink MD Approver2 : Report Date : 07/09/2017 18:23:45 My Comment : PROCEDURE: CT HEAD WITHOUT CONTRAST. HISTORY: vomiting headache COMPARISON: None available. TECHNIQUE: Axial computed tomography images were obtained through the head/brain without intravenous contrast. Radiation dose: Total exam DLP = 839.23 mGy-cm. This CT exam was performed using one or more of the following dose reduction techniques: Automated exposure control, adjustment of the mA and/or kV according to patient size, and/or use of iterative reconstruction technique. FINDINGS: HEMORRHAGE: No intracranial hemorrhage. BRAIN: No mass effect or edema. The balderas-white matter differentiation appears intact. Please note that MRI with diffusion imaging is more sensitive in the detection of acute ischemic event. VENTRICLES: No hydrocephalus. CALVARIUM: Unremarkable. PARANASAL SINUSES: Unremarkable as visualized. No significant inflammatory changes. MASTOID AIR CELLS: Unremarkable as visualized. No inflammatory changes. OTHER FINDINGS: None. IMPRESSION: No acute intracranial pathology identified. Labs unremarkable. Son in the ER reporting pt has similar episodes, may be related to "nerves" Pt required multiple antiemetics in ER, and had retching. Pt's symptoms eventually resolved in ER. Offered Ativan but patient refused. Family eager to take patient home. --- Scribe~Attestation: Documented by Phil Bowling, acting as a scribe for Slime Wynne MD. Provider Scribe~Attestation: All medical record entries made by the Scribe were at my direction and personally dictated by me. I have reviewed the chart and agree that the record accurately reflects my personal performance of the history, physical exam, medical decision making, and the department course for this patient. I have also personally directed, reviewed, and agree with the discharge instructions and disposition. Disposition - Clinical Impression Clinical Impression: Acute headache, Nausea and vomiting Counseled Patient/Family Regarding: Studies Performed, Diagnosis, Need For Followup, Rx Given - Disposition Referrals: Catarino Smyth MD [Staff Provider] - 07/10/17 ([facility]) Disposition: Routine/Home Disposition Time: 20:19 Condition: IMPROVED Prescriptions: Ondansetron ODT [Zofran ODT] 1 odt PO Q6 PRN #20 odt PRN Reason: Nausea/Vomiting Instructions: Acute Headache (ED), Acute Nausea and Vomiting (ED) Print Language: TAMAZIGHT
[2017-07-09 16:35] LABS: BASO % 0.7 % (0.0-2.0); EOS % 0.3 % (0.0-4.0); HEMOGLOBIN 12.9 g/dL (12.0-16.0); LYMPH # 1.7 K/uL (1.0-4.3); LYMPH % 27.5 % (20.0-40.0); MEAN CELL VOLUME 83.8 fl (81.0-99.0); MEAN CORPUSCULAR HEMOGLOBIN 27.5 pg (27.0-31.0); MEAN CORPUSCULAR HGB CONC 32.8 g/dL (33.0-37.0); MONO # 0.4 K/uL (0.0-0.8); MONO % 7.3 % (0.0-10.0); NEUT # 3.9 K/uL (1.8-7.0); NEUT % 64.2 % (50.0-75.0); NRBC % 0.1 % (0.0-0.0); RBC 4.69 Mil/uL (3.80-5.20); RED CELL DISTRIBUTION WIDTH 13.7 % (11.5-14.5); WHITE BLOOD COUNT 6.1 K/uL (4.8-10.8)
[2017-07-09 16:56] LABS: VENOUS BLOOD GAS PCO2 47 mmHg (40-60); VENOUS BLOOD GAS PO2 18 mm/Hg (30-55); VENOUS BLOOD PH 7.38 (7.32-7.43)
[2017-07-09 17:20] LABS: ALB/GLOB RATIO 1.2 (1.0-2.1); ALBUMIN 3.7 g/dL (3.5-5.0); ALT/SGPT 57 U/L (9-52); AST/SGOT 31 U/L (14-36); BLOOD UREA NITROGEN 17 mg/dl (7-17); CALCIUM 8.9 mg/dL (8.4-10.2); GFR AFRICAN-AMERICAN > 60; GFR NON-AFRICAN AMERICAN > 60; LIPASE 97 U/L (23-300); MAGNESIUM 1.8 MG/DL (1.6-2.3)
--- NOTE | 2017-07-09 18:25 | CT ---
PROCEDURE: CT HEAD WITHOUT CONTRAST. HISTORY: vomiting headache COMPARISON: None available. TECHNIQUE: Axial computed tomography images were obtained through the head/brain without intravenous contrast. Radiation dose: Total exam DLP = 839.23 mGy-cm. This CT exam was performed using one or more of the following dose reduction techniques: Automated exposure control, adjustment of the mA and/or kV according to patient size, and/or use of iterative reconstruction technique. FINDINGS: HEMORRHAGE: No intracranial hemorrhage. BRAIN: No mass effect or edema. The balderas-white matter differentiation appears intact. Please note that MRI with diffusion imaging is more sensitive in the detection of acute ischemic event. VENTRICLES: No hydrocephalus. CALVARIUM: Unremarkable. PARANASAL SINUSES: Unremarkable as visualized. No significant inflammatory changes. MASTOID AIR CELLS: Unremarkable as visualized. No inflammatory changes. OTHER FINDINGS: None. IMPRESSION: No acute intracranial pathology identified.
--- NOTE | 2017-07-10 14:23 | CARD ---
APPROVED REPORT EKG Measurement Heart [id number] <Conclusion> Sinus tachycardia Nonspecific ST and T wave abnormality Abnormal ECG
== END 2017-07-09 20:36 | disposition home or self-care (01) ==
LOC: H.ER 15:20
DX: R51 Headache (principal); R11.2 Nausea with vomiting, unspecified; E11.9 Type 2 diabetes mellitus without complications; E78.00 Pure hypercholesterolemia, unspecified; F41.9 Anxiety disorder, unspecified; I10 Essential (primary) hypertension; J45.909 Unspecified asthma, uncomplicated
CPT/HCPCS: 70450; 80053; 82803; 82948; 83690; 83735; 84100; 85025; 93005; 96374; 96375; 99283; J1200; J2405; J2550; J7040